=== PATIENT | female | born 1945 ===

== ENCOUNTER 2017-03-05 12:59 | Outpatient (CLI) | payer OTHER | END 2017-03-05 13:07 | disposition home or self-care (01) | LOC: SONOGRAMA 12:59 | DX: N63.21 Unspecified lump in the left breast, upper outer quadrant (principal) ==

== ENCOUNTER 2022-10-27 13:37 | Outpatient (CLI) | payer OTHER | END 2022-10-27 13:41 | disposition home or self-care (01) | LOC: SONOGRAMA 13:37 | PROVIDERS: ATTEND Surgery | DX: D24.1 Benign neoplasm of right breast (principal); N64.1 Fat necrosis of breast ==